=== PATIENT | male | born 1950 | race Caucasian/White ===

== ENCOUNTER 2017-02-15 10:50 | Observation (INO) ==
[2017-02-15] MEDS ORDERED: diphenhydrAMINE CAP 25 MG CAPSULE PO ONE (10:54)
[2017-02-15] MEDS ORDERED: DIAZEPAM 5 MG TABLET PO ONE (10:54)
[2017-02-15] MEDS ORDERED: SODIUM CHLORIDE 0.45% 1,000 ML IV SCH (11:00)
[2017-02-15] MEDS ORDERED: MAGNESIUM SULF RIDER 2 GM in PREMIX 1 EACH IV PRN ×2 (12:04→12:05)
[2017-02-15] MEDS ORDERED: MAGNESIUM SULF RIDER 4 GM in PREMIX 1 EACH IV PRN (12:04)
[2017-02-15] MEDS ORDERED: POTASSIUM CHLORIDE RIDER 10 MEQ in PREMIX 1 EACH IV PRN (12:05)
[2017-02-15 12:07] LABS: Basophils % 0.3 % (0.0-0.8); Eosinophils # 0.1 10*3/uL (0.0-0.87); Eosinophils % 1.4 % (0.00-10.9); Hematocrit 41.5 VOL% (42.0-52.0); Immature Granulocytes % 0.3 %; Immature Granulocytes Absolute 0.01 #; Lymphocytes # 1.4 10*3/uL (1.4-4.0); Lymphocytes % 38.1 % (21.2-54.2); Mean Corpuscular HGB Conc 33.7 GM/DL (32-36); Mean Corpuscular Hemoglobin 32 PG (27-34); Mean Corpuscular Volume 95.2 FL (87-102); Mean Platelet Volume 9.7 FL (9.6-12.0); Monocytes # 0.4 10*3/uL (0.11-0.8); Monocytes % 10.5 % (1.7-12.7); Neutrophils # 1.8 10*3/uL (1.4-7.4); Neutrophils % 49.4 % (38.7-73.9); Platelet Count 208 T/CUMM (130-400); Red Blood Count 4.36 MC/CUMM (3.8-5.5); Red Cell Distribution Width 13.2 % (9.3-17.3); White Blood Count 3.7 T/CUMM (4-12)
[2017-02-15] MEDS ORDERED: HEPARIN/NACL 0.9% 2 UNITS/ML 1,000 ML IV ONE (12:19)
[2017-02-15] MEDS ORDERED: LIDOCAINE 1% 20 ML VIAL ONE (12:19)
[2017-02-15 12:33] LABS: Calcium 8.9 MG/DL (8.5-10.1); Osmolality,Calculated 284.8 MOS/KG (273-304)
[2017-02-15] MEDS ORDERED: HYDROmorphone 2 MG/1 ML VIAL ONE (12:53)
[2017-02-15] MEDS ORDERED: MIDAZOLAM 2 MG/2 ML VIAL ONE (12:53)
[2017-02-15] MEDS ORDERED: ASPIRIN 325 MG TABLET ONE (13:07)
--- NOTE | 2017-02-15 14:19 | Cardiac Catheterization ---
Date of Procedure:: 02/15/17 Procedure: CLINICAL SUMMARY: PROCEDURES PERFORMED: 1. Right femoral percutaneous arteriotomy 2. Left heart catheterization. 3. Resting hemodynamics. 4. Left ventriculography. 5. Coronary arteriography. 6. Selective left internal mammary bypass graft angiography. 6. Right femoral arteriogram. 7. Angio-Seal closure of the right femoral artery. DESCRIPTION OF PROCEDURE: After obtaining informed consent, the patient was brought to the cardiac catheterization lab where the right groin was prepped and draped in the usual sterile manner. Using IV sedation, local anesthesia, and Modified Seldinger technique, a needle was placed in the right femoral artery and a sheath was positioned without difficulty. A left coronary catheter was advanced over a guidewire under fluoroscopic control to the ascending aorta where angiograms of the left coronary artery were undertaken in multiple views. After adequate angiograms, this catheter was withdrawn and a right coronary catheter was advanced over a guidewire under fluoroscopic control to the ascending aorta with angiograms of the RCA were undertaken in numerous projections. We ultimately used this catheter to perform angiogram of the left internal mammary coronary artery bypass graft as well. After adequate angiograms, this catheter was removed and a pigtail ventriculographic catheter was advanced over a guidewire under fluoroscopic control to the aortic valve and left ventricular pressures were measured. After adequate pressures were measured, this catheter was used to perform left ventriculography in the CRISTINA projection. This catheter was then withdrawn under hemodynamic monitoring and removed from the patient. A right femoral arteriogram was performed showing adequate sheath placement for closure device deployment. The sheath was then removed and an Angio-Seal device was used to obtain hemostasis. The patient was transferred back to the room having suffered no immediate complications. HEMODYNAMICS: See the accompanying data sheet. CORONARY ARTERIOGRAPHY: LEFT MAIN: The left main coronary artery is a small diffusely diseased vessel which bifurcates into the left anterior descending and left circumflex coronary arteries. I don't see any focal obstructive disease in the left main coronary artery. LEFT CIRCUMFLEX: The left circumflex coronary artery is a relatively small diffusely diseased vascular system. It gives off a moderate-sized first obtuse marginal branch and a moderate-sized bifurcating second obtuse marginal branch and a moderate-sized posterolateral branch. There is some diffuse moderate disease throughout the left circumflex coronary artery system. There is a old vein graft touches down on the first and second obtuse marginal branches. The jump section of this graft appears to be patent but the graft is known to be occluded at its origin from the aorta. The inferior branch of the second obtuse marginal is a relatively small severely diseased vessel with sequential 99% stenoses and faint distal filling. It does not appear to be a good candidate for revascularization and does not appear to have changed significantly since the previous cardiac catheterization. LEFT ANTERIOR DESCENDING: The left anterior descending artery is moderate size vessel which gives off a moderate-sized first diagonal branch. The LAD is occluded in its midsegment. The first diagonal branch has diffuse moderate disease throughout its course. The distal left anterior descending coronary artery is seen filling via patent left internal mammary arterial graft. RIGHT CORONARY ARTERY: The right coronary artery is a large-caliber vessel which gives off a posterior descending artery and a posterolateral system. There are stents throughout the proximal to mid right coronary artery which are widely patent. There is a chronic total occlusion of the posterior descending artery which is not changed since the previous catheterization. I don't see any focal high-grade disease that appears to be a good interventional target in this vessel. LEFT INTERNAL MAMMARY TO LEFT ANTERIOR DESCENDING: This is a large caliber bypass graft which is widely patent throughout its course. There is moderate diffuse coronary artery disease in the left anterior descending coronary artery distal to the touchdown of the graft. LEFT VENTRICULOGRAPHY: Left ventricular ejection fraction appears to be 40-45% with hypokinesis in the mid anterolateral and infero-apical wall. PERIPHERAL ARTERIOGRAPHY: Right femoral arteriogram shows a normal right iliofemoral artery with adequate sheath placement for closure device deployment. IMPRESSIONS: 1. Severe diffuse [place] three-vessel coronary artery disease as described above. There has has not been any significant change in the coronary anatomy since the previous catheterization. 2. Widely patent internal mammary arterial to left anterior descending coronary artery bypass graft. 3. Known occlusion of the saphenous vein graft to the obtuse marginal branches. 4. Mildly reduced left ventricular systolic function with wall motion abnormality as described above. 5. Normal right iliofemoral artery with successful and distal closure of this vessel. PLAN: The patient has severe diffuse multivessel coronary artery disease. I don 't see any good interventional options at this time. His case was discussed with Dr. Rocha today both preoperatively and postoperatively. For now we will continue aggressive medical management. Anesthesia: minimal conscious sedation Surgeon / Physician: Dexter Diez Estimated blood loss: minimal Condition: stable Disposition: floor - Medications / Follow-up
[2017-02-15] MEDS ORDERED: NITROGLYCERIN SL 0.4 MG TABLET SL PRN (14:41)
[2017-02-15] MEDS ORDERED: SODIUM CHLORIDE 0.9% 1,000 ML IV SCH (15:00)
--- NOTE | 2017-02-15 16:10 | Discharge Summary ---
Hospital Course - Hospital Course Hospital Course: DO NOT CLOSE THIS NOTE. THIS IS A ROUGH DRAFT! DISCHARGE MEDS AND EXAM MUST BE COMPLETED! TOP AND SEAT COVER FITTER: DR. BANDA Patient was directly admitted from cardiovascular [place] [facility] by Dr. Banda for complaints of chest pain concerning for angina. He underwent elective cardiac catheterization performed by Dr. Dexter Diez February 15, 2017 with the following impression noted: IMPRESSIONS: 1. Severe diffuse [place] three-vessel coronary artery disease as described above. There has has not been any significant change in the coronary anatomy since the previous catheterization. 2. Widely patent internal mammary arterial to left anterior descending coronary artery bypass graft. 3. Known occlusion of the saphenous vein graft to the obtuse marginal branches. 4. Mildly reduced left ventricular systolic function with wall motion abnormality as described above. 5. Normal right iliofemoral artery with successful and distal closure of this vessel. PLAN: The patient has severe diffuse multivessel coronary artery disease. I don 't see any good interventional options at this time. His case was discussed with Dr. Banda today both preoperatively and postoperatively. For now we will continue aggressive medical management. He tolerated the procedure well without complication and was returned to our telemetry unit in stable condition. Overnight, his labs were stable. During the hospital stay his Coreg was increased from 3.125 mg orally twice daily to 6.25 mg orally twice daily. Patient has been ambulating without difficulty. He is anxious for release home. Having felt him at maximal medical therapy, patient is being discharged home in stable condition. He is being given a 1-2 week follow-up with Dr. Banda. At that visit the following labs will be obtained, BMP, magnesium, CBC. Discharge medications include the following: Aspirin 81 mg orally daily Atorvastatin 80 mg orally each evening Carvedilol 6.25 mg orally twice daily Plavix 75 mg orally daily Lasix 40 mg orally daily Isosorbide mononitrate 30 mg orally daily Nifedipine XL 90 mg orally each evening Nitroglycerin sublingual as needed Pantoprazole 40 mg orally daily Ranexa 1000 mg orally twice daily Sertraline 100 mg orally daily Trazodone 150 mg orally each evening Amaryl 2 mg orally twice daily - Time spent with patient Time with patient DS: Greater than 30 minutes Diagnosis - Discharge Diagnosis (1) Chest pain Status: Chronic (2) Status post coronary artery bypass grafting Status: Chronic (3) Cerebrovascular accident (stroke) Status: Chronic (4) Dyslipidemia Status: Chronic (5) Hypertension Status: Chronic Specialty Discharge - Follow Up or Referrals Follow up with: Katy Banda DO [Physician] - (1-2 WEEKS. BMP, Mg, CBC) Discharge Plan - Discharge Data Disposition: Disch To Home/Self Care Condition at Discharge: Stable Discharge Diet: heart healthy Activity: other (Post cath expectations) Hygiene: no restrictions Weight Bearing at Discharge: other (Post cath expectations) Driving: other (Post cath expectations) Contact your physician if you experience:: fever over 101, Difficulty voiding, Redness or swelling, Nausea/Vomiting, Shortness of breath, Bleeding, pain uncontrolled by pain medications - Discharge Medications No Action Furosemide Tab [Lasix Tab] 40 mg PO DAILY Sertraline [Zoloft] 100 mg PO DAILY Aspirin EC Tab 81 mg PO DAILY Atorvastatin Calcium [Lipitor] 80 mg PO DAILY NIFEdipine [Nifedipine ER] 90 mg PO BEDTIME Ranolazine [Ranexa] 1,000 mg PO BID Carvedilol [Coreg] 3.125 mg PO BID traZODone [Desyrel] 150 mg PO BEDTIME Glimepiride [Glimepiride] 2 mg PO BID Clopidogrel [Plavix] 75 mg PO DAILY Pantoprazole Tab [Protonix Tab] 40 mg PO DAILY Nitroglycerin [Nitroglycerin SL Tab] 0.4 mg SL DIRECTED PRN MDD 3 tabs PRN Reason: Chest Pain - Follow Up or Referral - Forms/Instructions Exam - Constitutional Vitals: Period Temp Pulse Resp BP Sys/Gracia Pulse Ox Last 24 Hr 97.6 F-98.1 F 70-81 18-18 134-156/65-84 96-97 Exam: General: [Appears well with no apparent distress.] [Pleasant and cooperative. ] [Appears comfortable.] HEENT: [PERRL, normocephalic, atraumatic. Mucous membranes moist. No jaundice noted. Conjunctiva moist and clear, sclerae anicteric] Neck: No JVD/HJR, no thyromegaly or lymphadenopathy noted. No carotid bruit appreciated Cardiac: [Regular rate and rhythm.] [No murmur rub or gallop.] Lungs: [Clear to auscultation without accessory muscle use to assist the respiratory pattern.] Not requiring oxygen Abdomen: Soft, bowel sounds normoactive. Nontender and nondistended. No abdominal bruit or thrill noted. No masses noted. Musculoskeletal: No fluid collection. Decreased range of motion is noted. Extremities: Right groin soft, free of hematoma or bruit. No clubbing, cyanosis noted. [ No edema noted.] Upper extremity pulses 2+. Lower extremity pulses 2+. Capillary refill less than 3 seconds. Skin: No unusual lesions or rashes. No skin breakdown appreciated. Neuro: Awake, alert and oriented 3. Moves all extremities well without hemiparesis or paralysis. No essential tremor is appreciated. Discharge Results Procedures and tests throughout hospitalization: Pending Orders 02/15/17 12:26 CL heart Routine 02/15/17 15:56 XR chest 1V portable Routine 02/16/17 04:00 BMP w/ Mg [Basic Metabolic Panel w/Mg] IN AM Basic Metabolic Panel IN AM Comp Blood Count Auto Diff IN AM Magnesium IN AM Labs on day of discharge: Labs from last 24 hours 02/15/17 02/15/17 12:02 12:02 WBC 3.7 L RBC 4.36 Hgb 14.0 Hct 41.5 L MCV 95.2 MCH 32 MCHC 33.7 RDW 13.2 Plt Count 208 MPV 9.7 Neut % (Auto) 49.4 Lymph % (Auto) 38.1 Teller % (Auto) 10.5 Eos % (Auto) 1.4 Baso % (Auto) 0.3 Neut # (Auto) 1.8 Lymph # (Auto) 1.4 Teller # (Auto) 0.4 Eos # (Auto) 0.1 Baso # (Auto) 0.0 Immature Gran % 0.3 Nucleated RBC % 0.0 Immature Gran # 0.01 Nucleated RBCs # 0.00 Sodium 144 Potassium 4.0 Chloride 105 Carbon Dioxide 31 Anion Gap 12.0 BUN 11 Creatinine 1.10 GFR Calculation 77 BUN/Creatinine Ratio 10.00 Glucose 91 Calculated Osmolality 284.8 Calcium 8.9 - Imaging and Cardiology Cardiology Procedure: report reviewed by me Procedure: Chest x-ray: report reviewed by me DS: Provider Date of admission: 02/15/17 11:41 Primary care physician: . No PCP Attending physician on admission: Katy Banda DO Consults: 02/15/17 12:49 Consult to Pharmacy [CONS] Routine Reason for Pharmacy Consult: Adjust Meds Renal Funct Discharging clinician: Otilia Pandey MAINTENANCE INSPECTOR
--- NOTE | 2017-02-15 16:37 | XRay Report ---
XR chest 1V portable Indication: Postop heart catheter. Chest one view: Comparison 07/21/2016. Lung volumes remain low with continued atelectasis. However, increased interstitial markings noted throughout, likely mild edema. No focal infiltrate. Heart size remains normal with stable median sternotomy wires. Impression: Continued pulmonary hypoinflation. Evidence of mild fluid overload with increased prominence of the interstitium of both lungs. PROCEDURE INTERPRETED AT [facility] DEPARTMENT OF RADIOLOGY Final Report Signed by: Sukumar Posey M.D.
[2017-02-15] MEDS: CARVEDILOL 6.25 MG TABLET PO SCH (20:29)
[2017-02-15] MEDS: RANOLAZINE 500 MG TABLET PO SCH (20:29)
[2017-02-15] MEDS: GLIMEPIRIDE 2 MG TABLET PO SCH (20:30)
[2017-02-15] MEDS ORDERED: CARVEDILOL 3.125 MG TABLET PO SCH (21:00)
[2017-02-16 02:47] LABS: Basophils % 0.2 % (0.0-0.8); Eosinophils # 0.1 10*3/uL (0.0-0.87); Eosinophils % 2.1 % (0.00-10.9); Hematocrit 40.5 VOL% (42.0-52.0); Hemoglobin 13.2 GM/DL (14.0-18.0); Lymphocytes # 1.9 10*3/uL (1.4-4.0); Lymphocytes % 40.3 % (21.2-54.2); Mean Corpuscular HGB Conc 32.6 GM/DL (32-36); Mean Corpuscular Hemoglobin 31 PG (27-34); Mean Corpuscular Volume 96.4 FL (87-102); Mean Platelet Volume 9.8 FL (9.6-12.0); Monocytes # 0.5 10*3/uL (0.11-0.8); Monocytes % 10.9 % (1.7-12.7); Neutrophils # 2.2 10*3/uL (1.4-7.4); Neutrophils % 46.5 % (38.7-73.9); Platelet Count 188 T/CUMM (130-400); Red Cell Distribution Width 13.2 % (9.3-17.3); White Blood Count 4.7 T/CUMM (4-12)
[2017-02-16 03:13] LABS: Calcium 8.1 MG/DL (8.5-10.1); Magnesium 1.9 MG/DL (1.8-2.4); Osmolality,Calculated 284.7 MOS/KG (273-304); Potassium 3.5 MMOL/L (3.5-5.1)
[2017-02-16 08:47] VITALS: BP 120/72
[2017-02-16] MEDS ORDERED: PANTOPRAZOLE 40 MG TABLET PO SCH (09:00)
[2017-02-16] MEDS ORDERED: ATORVASTATIN 80 MG TABLET PO SCH (09:00)
[2017-02-16] MEDS ORDERED: SERTRALINE 100 MG TABLET PO SCH (09:00)
[2017-02-16] MEDS ORDERED: ISOSORBIDE MONONITRATE 30 MG TABLET PO SCH (09:00)
[2017-02-16] MEDS ORDERED: FUROSEMIDE 40 MG TABLET PO SCH (09:00)
[2017-02-16] MEDS ORDERED: ASPIRIN EC 81 MG TABLET PO SCH (09:00)
[2017-02-16] MEDS ORDERED: CLOPIDOGREL 75 MG TABLET PO SCH (09:00)
--- NOTE | 2017-02-16 09:49 | Discharge Summary ---
<Nelia Tse - Last Filed: 02/16/17 09:47> Hospital Course - Hospital Course Hospital Course: TREE EXPERT: DR. BANDA Patient was directly admitted from cardiovascular [place] [facility] by Dr. Banda for complaints of chest pain concerning for angina. He underwent elective cardiac catheterization performed by Dr. Dexter Diez February 15, 2017 with the following impression noted: IMPRESSIONS: 1. Severe diffuse [place] three-vessel coronary artery disease. There has has not been any significant change in the coronary anatomy since the previous catheterization. 2. Widely patent internal mammary arterial to left anterior descending coronary artery bypass graft. 3. Known occlusion of the saphenous vein graft to the obtuse marginal branches. 4. Mildly reduced left ventricular systolic function with wall motion abnormality, 40-45%. 5. Normal right iliofemoral artery with successful and distal closure of this vessel. PLAN: The patient has severe diffuse multivessel coronary artery disease. I don 't see any good interventional options at this time. His case was discussed with Dr. Banda today both preoperatively and postoperatively. For now we will continue aggressive medical management. He tolerated the procedure well without complication and was returned to our telemetry unit in stable condition. Overnight, his labs were stable. Right groin is soft without bleeding, hematoma and bruit. Distal pulses 2+. During the hospital stay his Coreg was increased from 3.125 mg orally twice daily to 6.25 mg orally twice daily. Patient has been ambulating without difficulty. Right groin remained stable post ambulation. He is anxious for release home. Having felt him at maximal medical therapy, patient is being discharged home in stable condition. He is being given a 1-2 week follow-up with Dr. Banda. At that visit the following labs will be obtained, BMP, magnesium, CBC. Discharge medications include the following: Aspirin 81 mg orally daily Atorvastatin 80 mg orally each evening Carvedilol 6.25 mg orally twice daily Plavix 75 mg orally daily Lasix 40 mg orally daily Potassium 10 mEq daily Isosorbide mononitrate 30 mg orally daily Nifedipine XL 90 mg orally each evening Nitroglycerin sublingual as needed Pantoprazole 40 mg orally daily Ranexa 1000 mg orally twice daily Sertraline 100 mg orally daily Trazodone 150 mg orally each evening Amaryl 2 mg orally twice daily Diagnosis - Discharge Diagnosis (1) Chest pain Status: Resolved (2) Cerebrovascular accident (stroke) Status: Chronic (3) Dyslipidemia Status: Chronic (4) Hypertension Status: Chronic (5) Status post coronary artery bypass grafting Status: Chronic Specialty Discharge - Follow Up or Referrals Follow up with: Katy Banda DO [Physician] - 03/03/17 9:30 am (1-2 WEEKS. SHINE Mg, CBC) Discharge Plan - Discharge Data Disposition: Disch To Home/Self Care Condition at Discharge: Stable Discharge Diet: heart healthy Activity: no lifting (No heavy lifting or squatting 1 week.), other (Post cath expectations) Hygiene: may shower, other (Post cath expectations) Weight Bearing at Discharge: other (Post cath expectations) Driving: other (Post cath expectations) Contact your physician if you experience:: fever over 101, Difficulty voiding, Redness or swelling, Nausea/Vomiting, Shortness of breath, Bleeding, pain uncontrolled by pain medications - Discharge Medications New Carvedilol [Coreg] 6.25 mg PO BID #60 tablet Potassium Chloride Cap/Tab [K Dur] 10 meq PO DAILY #30 tablet Isosorbide Mononitrate [Imdur] 30 mg PO DAILY #30 tablet Continue Furosemide Tab [Lasix Tab] 40 mg PO DAILY Sertraline [Zoloft] 100 mg PO DAILY Aspirin EC Tab 81 mg PO DAILY Atorvastatin Calcium [Lipitor] 80 mg PO DAILY NIFEdipine [Nifedipine ER] 90 mg PO BEDTIME Ranolazine [Ranexa] 1,000 mg PO BID traZODone [Desyrel] 150 mg PO BEDTIME Glimepiride 2 mg PO BID Clopidogrel [Plavix] 75 mg PO DAILY Pantoprazole Tab [Protonix Tab] 40 mg PO DAILY Nitroglycerin [Nitroglycerin SL Tab] 0.4 mg SL DIRECTED PRN MDD 3 tabs PRN Reason: Chest Pain Discontinued Carvedilol [Coreg] 3.125 mg PO BID - Follow Up or Referral Follow Up: Katy Banda DO [Physician] - 03/03/17 9:30 am (1-2 WEEKS. Mg SHINE, CBC) - Forms/Instructions Instructions: Angina (DC), Right Heart Catheterization (DC) Exam - Constitutional Vitals: Period Temp Pulse Resp BP Sys/Gracia Pulse Ox Last 24 Hr 96.7 F-98.2 F 56-81 14-20 112-156/65-84 96-100 General appearance: normal weight, no acute distress - Head Head exam: Present: normal inspection, normocephalic, atraumatic - Respiratory Respiratory exam: Present: clear to auscultation bilaterally. Absent: accessory muscle use, chest wall tenderness, rales, rhonchi, stridor, wheezes - Cardiovascular Cardiovascular exam: Present: regular rate and rhythm. Absent: gallop, rubs - GI/Abdominal GI/Abdominal exam: Present: normal bowel sounds, soft. Absent: distended, firm , tenderness - Extremities Exam Extremities exam: Present: normal inspection, normal capillary refill, other ( Right groin soft without bleeding, hematoma and bruit. Bilateral lower extremity pulses 2+.). Absent: calf tenderness, edema - Neurological Exam Neurological exam: Present: alert, oriented X3, normal gait - Psychiatric Psychiatric exam: Present: normal affect, normal mood. Absent: agitated, anxious, depressed - Skin Skin exam: Present: normal color, warm, dry. Absent: cyanosis, erythema Discharge Results Labs on day of discharge: Labs from last 24 hours 02/16/17 02/16/17 02/16/17 10:00 01:51 01:51 WBC 4.7 RBC 4.20 Hgb 13.2 L Hct 40.5 L MCV 96.4 MCH 31 MCHC 32.6 RDW 13.2 Plt Count 188 MPV 9.8 Neut % (Auto) 46.5 Lymph % (Auto) 40.3 Snyder % (Auto) 10.9 Eos % (Auto) 2.1 Baso % (Auto) 0.2 Neut # (Auto) 2.2 Lymph # (Auto) 1.9 Snyder # (Auto) 0.5 Eos # (Auto) 0.1 Baso # (Auto) 0.0 Immature Gran % 0.0 Nucleated RBC % 0.0 Immature Gran # 0.00 Nucleated RBCs # 0.00 Sodium 145 Potassium 3.5 Chloride 106 Carbon Dioxide 32 Anion Gap 10.5 BUN 9 Creatinine 0.80 GFR Calculation 103 BUN/Creatinine Ratio 11.00 Glucose 67 L POC Glucose 144 H Calculated Osmolality 284.7 Calcium 8.1 L Magnesium 1.9 02/15/17 02/15/17 12:02 12:02 WBC 3.7 L RBC 4.36 Hgb 14.0 Hct 41.5 L MCV 95.2 MCH 32 MCHC 33.7 RDW 13.2 Plt Count 208 MPV 9.7 Neut % (Auto) 49.4 Lymph % (Auto) 38.1 Snyder % (Auto) 10.5 Eos % (Auto) 1.4 Baso % (Auto) 0.3 Neut # (Auto) 1.8 Lymph # (Auto) 1.4 Snyder # (Auto) 0.4 Eos # (Auto) 0.1 Baso # (Auto) 0.0 Immature Gran % 0.3 Nucleated RBC % 0.0 Immature Gran # 0.01 Nucleated RBCs # 0.00 Sodium 144 Potassium 4.0 Chloride 105 Carbon Dioxide 31 Anion Gap 12.0 BUN 11 Creatinine 1.10 GFR Calculation 77 BUN/Creatinine Ratio 10.00 Glucose 91 POC Glucose Calculated Osmolality 284.8 Calcium 8.9 Magnesium - Imaging and Cardiology Cardiology Procedure: report reviewed by me Procedure: Chest x-ray: report reviewed by me DS: Provider Date of admission: 02/15/17 11:41 Primary care physician: . No PCP Attending physician on admission: Katy Banda DO Consults: 02/15/17 12:49 Consult to Pharmacy [CONS] Routine Reason for Pharmacy Consult: Adjust Meds Renal Funct Discharging clinician: Nelia Tse NP Expected date of discharge: 02/16/17 <Mauricio Calderon - Last Filed: 02/16/17 10:50> Hospital Course - Hospital Course Hospital Course: Cardiology addendum Patient examined and chart reviewed. Right groin soft and dry. Small ecchymotic bruise but no bruit or hematoma. Distal pulses 2+. Routine groin precautions were discussed with the patient and his . Home today. Office visit with Dr. Cooley in 2 weeks scheduled medications as outlined above.
[2017-02-16] MEDS: CARVEDILOL 6.25 MG TABLET PO SCH (10:01)
[2017-02-16] MEDS: GLIMEPIRIDE 2 MG TABLET PO SCH (10:01)
[2017-02-16] MEDS: RANOLAZINE 500 MG TABLET PO SCH (10:01)
[2017-02-16] MEDS ORDERED: POTASSIUM CHLORIDE 20 MEQ TABLET PO ONE (10:11)
[2017-02-17] MEDS ORDERED: POTASSIUM CHLORIDE 10 MEQ TABLET PO SCH (09:00)
== END 2017-02-16 11:37 | disposition home or self-care (01) ==
LOC: N.TELES
PROVIDERS: ADMIT Internal Medicine Cardiovascular Disease; ATTEND Internal Medicine Cardiovascular Disease

== ENCOUNTER 2017-08-17 11:58 | Inpatient (IN) ==
[2017-08-17] MEDS ORDERED: SODIUM CHLORIDE 0.9% 500 ML IV STA (12:18)
[2017-08-17 12:30] LABS: Basophils % 0.2 % (0.0-0.8); Eosinophils # 0.1 10*3/uL (0.0-0.87); Eosinophils % 1.2 % (0.00-10.9); Hematocrit 36.3 VOL% (42.0-52.0); Hemoglobin 12.6 GM/DL (14.0-18.0); Immature Granulocytes % 0.2 %; Immature Granulocytes Absolute 0.01 #; Lymphocytes # 1.2 10*3/uL (1.4-4.0); Lymphocytes % 23.4 % (21.2-54.2); Mean Corpuscular HGB Conc 34.7 GM/DL (32-36); Mean Corpuscular Hemoglobin 34 PG (27-34); Mean Corpuscular Volume 96.5 FL (87-102); Mean Platelet Volume 10.4 FL (9.6-12.0); Monocytes # 0.5 10*3/uL (0.11-0.8); Monocytes % 10.6 % (1.7-12.7); Neutrophils # 3.2 10*3/uL (1.4-7.4); Neutrophils % 64.4 % (38.7-73.9); Platelet Count 128 T/CUMM (130-400); Red Blood Count 3.76 MC/CUMM (3.8-5.5); Red Cell Distribution Width 12.6 % (9.3-17.3)
[2017-08-17 12:38] LABS: INR 1.1; PT Patient Result 11.5 SECS
--- NOTE | 2017-08-17 12:39 | Emergency Department Note ---
Kevin Childs Brittany, am scribing for, and in the presence of, Jose Nolasco MD 12:28. Gaurav Childs Charles R, MD, personally performed the services described in this documentation, ascribed by Sara Brown in my presence, and it is both accurate and complete . Arrival - Arrival Chief Complaint: Altered Mental Status Stated Complaint: altered loc ED Nursing Triage Note: Brought in by EMS c/o altered LOC, states that they were at a , patient grabbed her hand and stated "something isn't right". Diaphoretic. Accucheck 126mg/dl per EMS. Mode of Arrival: Stretcher Limitations: Altered Mental Status Source: Significant other, RN Notes Reviewed Time Seen by Provider: 08/17/17 12:08 - History of Present Illness HPI Narrative: Patient is a 66 y/o white male presenting to the ED via EMS for further evaluation of AMS. at the bedside reports that she and patient were attending a family member's when he gripped her hand tight and told her he wasn't feeling well. Patient then collapsed onto the ground. She states that patient had become diaphoretic by that time. Patient was noted to have had a weak pulse and was not breathing for a brief period of time. Patient did open his eyes, but was looking off into space, not making eye contact with his . She is unsure of whether there may have been some type of seizure activity. She notes that he was complaining of chest pain last night that was relieved with a NTG. He had not complained of chest pain this morning. He is a patient of Dr. Rocha of Cardiology. Patient currently is on Plavix. Patient has a history of CAD, Multiple CVA, Quadruple Bypass, Cardiac Catheterization requiring x5 stents. notes that patient has a history of Basilar Stent placement at [facility] and reports that about 7-8 months ago patient described having symptoms similar to those experienced prior to having this shunt placed. She states that upon seeking medical attention for this patient was told that he has another blockage, but at that time nothing could be done about it. Patient is noted to have a GCS of 5 at this time. No further complaints. Allergies/Adverse Reactions: Allergies Allergy/AdvReac Type Severity Reaction Status Date / Time metoprolol [From Lopressor] Allergy Intermediate RASH Verified 04/14/15 06:38 Home Medications: Home Medications Medication Instructions Recorded Confirmed Type Aspirin EC Tab 81 mg PO DAILY 04/14/15 08/17/17 History Atorvastatin Calcium [Lipitor] 80 mg PO DAILY 04/14/15 08/17/17 History Ranolazine [Ranexa] 1,000 mg PO BID 04/14/15 08/17/17 History Clopidogrel [Plavix] 75 mg PO DAILY 02/15/17 08/17/17 History Nitroglycerin [Nitroglycerin SL 0.4 mg SL DIRECTED PRN MDD 3 02/15/17 History Tab] tabs Carvedilol [Coreg] 6.25 mg PO BID #60 tablet 02/16/17 08/17/17 Rx Gabapentin [Gabapentin] 100 mg PO QID 08/17/17 08/17/17 History Isosorbide Mononitrate [Isosorbide 60 mg PO DAILY 08/17/17 08/17/17 History Mononitrate ER] Losartan Potassium [Losartan 25 mg PO DAILY 08/17/17 08/17/17 History Potassium] Zolpidem Tartrate [Zolpidem 10 mg PO BEDTIME 08/17/17 08/17/17 History Tartrate] Review of System - Review of System ROS unobtainable: due to mental status - Review of System Cardiovascular: Present: syncope Medical,Surgical,& Family Hx - Medical History Cardio: History of: CAD, Hypertension, [place] Neurology: History of: Cerebrovascular Accident (left side def) No history of: Seizures Endocrine: History of: Diabetes Mellitus (NIDDM), Dyslipidemia Hematology: No history of: Blood Transfusion Reaction Other: History of: Anesthesia Reactions - Surgical History Cardiac Surgeries: Sugical HX of: Cardiac Catheterization (STENT), Cardiac Surgery (cabg) Neurologic Surgeries: Surgical HX of: Neurologic Surgery (basilar shunt) Abdominal Surgeries: Surgical HX of: Abdominal Surgery (knot removed from left abdomen at [place]), Colonoscopy, EGD (dilatation of strictures), Hernia Repair Orthopedic Surgeries: Surgical HX of;: Orthopedic Surgery (bilateral feet and elbow) - Family History Family History: Reports;: Family Cancer (sister throat cancer), Family Heart Disease (father), Family Hypertension (mother) - Social History Smoking Status: Never smoker Frequency of Alcohol Use: None Type of Drug Use: None Exam Vital Signs: Vital Signs Temperature 97.0 F L 08/17/17 11:59 Pulse Rate 51 L 08/17/17 11:59 Respiratory Rate 18 08/17/17 12:10 Blood Pressure 145/79 08/17/17 11:59 O2 Sat by Pulse Oximetry 98 08/17/17 11:59 - General General appearance: obtunded (Pt is totally unresponsive, does not respond to verbal/painful stimuli; GCS of 5) - Head Head exam: Present: atraumatic, normocephalic - Eye Eye exam: Absent: normal appearance (deviated gaze to the left; occasionally opens his eyes does not make eye contact, stres off into space -per ER physician ) - Neck Neck exam: Present: trachea midline - Chest Chest inspection: Present: symmetric chest wall rise - Respiratory Respiratory exam: Present: normal lung sounds bilaterally - Cardiovascular Cardiovascular exam: Present: normal rhythm, bradycardia, normal heart sounds. Absent: regular rate - Abdominal Exam Abdominal exam: Present: soft, normal bowel sounds - Neurological Exam Neurological exam: Present: other (GCS of 5). Absent: alert - Skin Skin exam: Present: warm, dry Course - Reevaluation(s) Reevaluation #1: Patient reexamined his GCS went from 5-14. Patient is not a candidate for TPA because he has improving symptoms and he had initial NIH score of 33. Patient has weakness on his left side with some left facial droop some difficulty swallowing left-sided weakness but no true paralysis. Time: 13:08 Results - Labs CBC & BMP: 08/17/17 12:12 08/17/17 12:12 Lab Results: I have reviewed the patients labs Labs: Laboratory Tests 08/17/17 08/17/17 12:07 12:12 WBC 5.0 RBC 3.76 L Hgb 12.6 L Hct 36.3 L Plt Count 128 L Lymph # (Auto) 1.2 L POC Glucose 121 H Laboratory Tests 08/17/17 12:12 INR 1.1 PT Patient/Control Mix 11.5 Laboratory Tests 08/17/17 08/17/17 12:12 12:12 Sodium 142 Potassium 4.1 Chloride 111 H Carbon Dioxide 26 BUN 17 Creatinine 1.00 Glucose 106 Calcium 7.9 L Alkaline Phosphatase 35 L Troponin I < 0.015 Prolactin 25.3 Laboratory Tests 08/17/17 12:56 Urine Color Yellow Urine Appearance Slightly hazy Urine pH 5.0 Ur Specific [place] 1.012 Urine Protein Negative Urine Glucose (UA) Negative Urine Ketones Negative Urine Blood Negative Urine Nitrate Negative Urine Bilirubin Negative Urine Urobilinogen < 2.0 H Urine Leukocytes Negative Urine RBC <1 Urine WBC 1 Ur Squamous Epith Cells Occasional Hyaline Casts 64 Urine Mucus Occasional - Diagnostic Findings Procedure: Chest x-ray: report reviewed by me (Cardiomegaly. Chronic lung changes. No acute abnormality.), CT: report reviewed by me (CT Head: No acute intracranial pathology seen.) Critical Care Time Critical Care Time: Yes Total Critical Care Time: 60 Disposition Clinical Impression: Altered mental status, CVA (cerebral vascular accident), Left-sided weakness Case discussed with: patient, patient's family Disposition: Still a Patient Condition: Guarded Time of Disposition: 13:44 NIH Stroke Score - Stroke Score Initial Assessment Level of Consciousness: Stuporous Level of Consciousness Questions: Both Incorrect Level of Consciousness Commands: Both Incorrect Best Gaze: Partial Gaze Palsy Visual Grady: No Visual Loss Facial Palsy: Normal Motor - Right Arm: No Movement Motor - Left Arm: No Movement Motor - Right Leg: No Movement Motor - Left Leg: No Movement Limb Ataxia: Absent Sensory ([place]): Severe Loss Best Language: Mute Dysarthria: Intubated/Physical Barrier Extinction / Inattention (Neglect): Complete Neglect NIH Stroke Score: 33
--- NOTE | 2017-08-17 12:40 | XRay Report ---
Single view the chest. Indication: Altered mental status. Comparison: February 15, 2017. The heart is enlarged. The lung volumes are small. Post median sternotomy. Normal pulmonary vasculature. No consolidation, pneumothorax, or pleural effusion. Mild scarring in the left lung base. Impression: Cardiomegaly. Chronic lung changes. No acute abnormality. PROCEDURE INTERPRETED AT [facility] DEPARTMENT OF RADIOLOGY Final Report Signed by: Dr. Nelia Dodge
--- NOTE | 2017-08-17 12:41 | CT Report ---
History is altered mental status, altered LOC Comparison 06/11/2014 the ventricles are normal in size No acute intracranial hemorrhage or mass effects seen Presumed stents in the basilar artery again seen No acute cortical stroke identified Impression: No acute intracranial pathology seen The CT exam was performed using one or more of the following dose reduction techniques: Automated exposure control, adjustment of the mA and/or kV according to patient size, or use of iterative reconstruction technique. PROCEDURE INTERPRETED AT [facility] DEPARTMENT OF RADIOLOGY Final Report Signed by: Dr. Steff Dodge
[2017-08-17 13:00] LABS: Ammonia 26 UMOL/L (11-32)
[2017-08-17 13:04] LABS: Alanine Aminotransferase 29 U/L (16-61); Albumin 3.4 G/DL (3.4-5.0); Alkaline Phosphatase 35 U/L (45-117); Aspartate Amino Transferase 19 U/L (0-37); Blood Urea Nitrogen 17 MG/DL (7-18); Calcium 7.9 MG/DL (8.5-10.1); Glucose 106 MG/DL (74-106); Magnesium 1.9 MG/DL (1.8-2.4); Osmolality,Calculated 284.1 MOS/KG (273-304); Potassium 4.1 MMOL/L (3.5-5.1); Sodium 142 MMOL/L (136-145); Total Protein 6.4 G/DL (6.4-8.3); Troponin I Only < 0.015 NG/ML (0.00-0.045)
[2017-08-17 13:24] LABS: Apearance,Urine Slightly Hazy (Clear); Bilirubin,Urine Negative (Negative); Blood, Urine Negative (Negative); Glucose,Urine (UA) Negative (Negative); Hyaline Casts,Urine 64 /LPF (0-3); Ketones,Urine Negative (Negative); Mucus,Urine Occasional /LPF (Occasional); Nitrite,Urine Negative (Negative); Protein,Urine Negative; RBC,Urine <1 /HPF (0-4); Squamous Epithelial Cell,Urine Occasional /HPF (0-10); Urine Color Yellow (Yellow); Urine Specific Gravity 1.012 (1.001-1.035); Urine Urobilinogen < 2.0 EU/DL (0.2-1.0); WBC,Urine 1 /HPF (0-6)
[2017-08-17] MEDS ORDERED: LABETALOL 20 MG/4 ML SYRINGE IV PRN (14:34)
[2017-08-17 14:36] LABS: Sedimentation Rate-Westergren 15 MM/HR (0-20)
--- NOTE | 2017-08-17 14:45 | Hospitalist History & Physical ---
Assessment and Plan (1) Acute CVA (cerebrovascular accident) Status: Acute Assessment and plan: MRI of brain, cta of head and neck, echo, asa suppository, spoke with Dr Bang , lipitor 80 mg po at bedtime Current Visit: Yes (2) CAD (coronary artery disease) Status: Acute Assessment and plan: s/p stents multiple, sees Dr. Rocha, serial troponins and ekgs, echo, Last cardiac cath that was on February 15, 2017. Severe diffuse three-vessel disease with no good stent options. He has a widely patent internal mammary artery to the left anterior descending artery graft. Nonocclusion of the saphenous graft to the obtuse marginal, ejection fraction is 40-45% with hypokinesis in the mid anterior lateral and inferior apical wall. No new stents were placed. Continue medical management with aspirin and Plavix. Current Visit: Yes (3) Hypertension Status: Chronic Assessment and plan: Hold meds due to acute stroke Current Visit: No Qualifiers: Hypertension type: essential hypertension Qualified Code(s): I10 - Essential (primary) hypertension (4) Depression Status: Chronic Assessment and plan: due to chronic medical problems, currently not on antidepressant Current Visit: No Qualifiers: Depression Type: major depressive disorder Major depression recurrence: recurrent Active/Remission status: currently active Major depression episode severity: severe Psychotic features: without psychotic features Qualified Code(s): F33.2 - Major depressive disorder, recurrent severe without psychotic features (5) Chest pain Status: Resolved Assessment and plan: patient unable to talk to me, serial troponins and ekg Current Visit: No (6) Altered mental status Status: Acute Assessment and plan: due to severe stroke, which is worsened with dehydration Current Visit: Yes (7) Dehydration Status: Acute Assessment and plan: ns at 125 ml/hr Current Visit: Yes (8) Hyperlipidemia Status: Acute Assessment and plan: feeding tube placement, cont lipitor 80 mg at bedtime. Current Visit: Yes History of Present Illness Chief complaint: unresponsive History of present illness: Mr. Gee is a 66 year old male presents to the ED via EMS for further evaluation of AMS. at the bedside reports that she and patient were attending a family member's when he gripped her hand tight and told her he wasn't feeling well. Patient then collapsed onto the ground. She states that patient had become diaphoretic by that time. Patient was noted to have had a weak pulse and was not breathing for a brief period of time. Patient did open his eyes, but was looking off into space, not making eye contact with his . She is unsure of whether there may have been some type of seizure activity. She notes that he was complaining of chest pain last night that was relieved with a NTG. He had not complained of chest pain this morning. He is a patient of Dr. Rocha of Cardiology and has had multiple cardiac stents. Patient currently is on Plavix and asa. Patient has a history of CAD, Multiple CVA usually always affecting the left side. reports having Basilar Stent placement at [facility] about 7-8 months. I have discussed case with Dr. Bang. Home Medications Medication Instructions Recorded Confirmed Type Aspirin EC Tab 81 mg PO DAILY 04/14/15 08/17/17 History Atorvastatin Calcium [Lipitor] 80 mg PO DAILY 04/14/15 08/17/17 History Ranolazine [Ranexa] 1,000 mg PO BID 04/14/15 08/17/17 History Clopidogrel [Plavix] 75 mg PO DAILY 02/15/17 08/17/17 History Nitroglycerin [Nitroglycerin SL 0.4 mg SL DIRECTED PRN MDD 3 02/15/17 History Tab] tabs Carvedilol [Coreg] 6.25 mg PO BID #60 tablet 02/16/17 08/17/17 Rx Gabapentin [Gabapentin] 100 mg PO QID 08/17/17 08/17/17 History Isosorbide Mononitrate [Isosorbide 60 mg PO DAILY 08/17/17 08/17/17 History Mononitrate ER] Losartan Potassium [Losartan 25 mg PO DAILY 08/17/17 08/17/17 History Potassium] Zolpidem Tartrate [Zolpidem 10 mg PO BEDTIME 08/17/17 08/17/17 History Tartrate] Allergies Allergy/AdvReac Type Severity Reaction Status Date / Time metoprolol [From Lopressor] Allergy Intermediate RASH Verified 04/14/15 06:38 Medical,Surgical,& Family Hx - Medical History Cardio: History of: CAD, Hypertension, [place] Neurology: History of: Cerebrovascular Accident (left side def) No history of: Seizures Endocrine: History of: Diabetes Mellitus (NIDDM), Dyslipidemia Hematology: No history of: Blood Transfusion Reaction Other: History of: Anesthesia Reactions - Surgical History Cardiac Surgeries: Sugical HX of: Cardiac Catheterization (STENT), Cardiac Surgery (cabg) Neurologic Surgeries: Surgical HX of: Neurologic Surgery (basilar shunt) Abdominal Surgeries: Surgical HX of: Abdominal Surgery (knot removed from left abdomen at [place]), Colonoscopy, EGD (dilatation of strictures), Hernia Repair Orthopedic Surgeries: Surgical HX of;: Orthopedic Surgery (bilateral feet and elbow) Additional Surgical History: basilar stent - Family History Family History: Reports;: Family Cancer (sister throat cancer), Family Heart Disease (father), Family Hypertension (mother) - Social History Smoking Status: Never smoker Frequency of Alcohol Use: None Type of Drug Use: None Marital Status: Lives With:: Spouse Functional capacity: independent ambulation ROS unobtainable: due to mental status, due to encephalopathy Exam - Constitutional Vitals: Period Temp Pulse Resp BP Sys/Gracia Pulse Ox Last 24 Hr 97.0 F-97.0 F 51-51 18-18 145-145/79-79 98-100 General appearance: no acute distress, over weight - Head Head exam: Present: normal inspection, normocephalic - Eye Eye exam: Present: EOMI. Absent: scleral icterus Pupils: Present: YUE - ENT ENT exam: Present: normal exam, normal external ear exam - Neck Neck exam: Absent: lymphadenopathy, thyromegaly - Respiratory Respiratory exam: Present: clear to auscultation bilaterally. Absent: rhonchi, wheezes - Cardiovascular Cardiovascular exam: Present: regular rate and rhythm. Absent: systolic murmur - GI/Abdominal GI/Abdominal exam: Present: normal bowel sounds, soft. Absent: tenderness - Extremities Exam Extremities exam: Present: normal inspection, normal capillary refill - Neurological Exam Neurological exam: Present: altered, motor sensory deficit (left side flaccid ) , reflexes normal, other (positive babinski on left ) - Psychiatric Psychiatric exam: Present: other (cannot assess due to lethargy ) - Skin Skin exam: Present: normal color, warm Results - Labs CBC & BMP: 08/17/17 12:12 08/17/17 12:12 Lab Results: I have reviewed the past 24 hour labs - EKG EKG shows: sinus rhythm (with qwaves in anteriorseptal leads ) - Diagnostic Findings Procedure: CT: report reviewed by me (head nothing acute)
--- NOTE | 2017-08-17 15:11 | Neurology Consult Note ---
History of Present Illness History of present illness: Mr. Gee is a 66 year old white gentleman presents to the ED via EMS for further evaluation of AMS. at the bedside reports that she and patient were attending a family member's when he gripped her hand tight and told her he wasn't feeling well. Patient then collapsed onto the ground. She states that patient had become diaphoretic by that time. Patient was noted to have had a weak pulse and was not breathing for a brief period of time. Patient did open his eyes, but was looking off into space, not making eye contact with his . He is a patient of Dr. Rocha of Cardiology and has had multiple cardiac stents. Patient currently is on Plavix and asa. Patient has a history of CAD, Multiple CVA usually always affecting the left side. reports having Basilar Stent placement at [facility] about 7-8 months. During the interview patient able to open his eyes and communicate with me. His speech is fluent. He was able to move left side as well. He was also able to get up and take a few steps with mod assist Home Medications Medication Instructions Recorded Confirmed Type Aspirin EC Tab 81 mg PO DAILY 04/14/15 08/17/17 History Atorvastatin Calcium [Lipitor] 80 mg PO DAILY 04/14/15 08/17/17 History Ranolazine [Ranexa] 1,000 mg PO BID 04/14/15 08/17/17 History Clopidogrel [Plavix] 75 mg PO DAILY 02/15/17 08/17/17 History Nitroglycerin [Nitroglycerin SL 0.4 mg SL DIRECTED PRN MDD 3 02/15/17 History Tab] tabs Carvedilol [Coreg] 6.25 mg PO BID #60 tablet 02/16/17 08/17/17 Rx Gabapentin [Gabapentin] 100 mg PO QID 08/17/17 08/17/17 History Isosorbide Mononitrate [Isosorbide 60 mg PO DAILY 08/17/17 08/17/17 History Mononitrate ER] Losartan Potassium [Losartan 25 mg PO DAILY 08/17/17 08/17/17 History Potassium] Zolpidem Tartrate [Zolpidem 10 mg PO BEDTIME 08/17/17 08/17/17 History Tartrate] Allergies Allergy/AdvReac Type Severity Reaction Status Date / Time metoprolol [From Lopressor] Allergy Intermediate RASH Verified 04/14/15 06:38 12 point system: reviewed and no additional remarkable complaints except as stated Medical,Surgical,& Family Hx - Medical History Cardio: History of: CAD, Hypertension, [place] Neurology: History of: Cerebrovascular Accident (left side def) No history of: Seizures Endocrine: History of: Diabetes Mellitus (NIDDM), Dyslipidemia Hematology: No history of: Blood Transfusion Reaction Other: History of: Anesthesia Reactions - Surgical History Cardiac Surgeries: Sugical HX of: Cardiac Catheterization (STENT), Cardiac Surgery (cabg) Neurologic Surgeries: Surgical HX of: Neurologic Surgery (basilar shunt) Abdominal Surgeries: Surgical HX of: Abdominal Surgery (knot removed from left abdomen at [place]), Colonoscopy, EGD (dilatation of strictures), Hernia Repair Orthopedic Surgeries: Surgical HX of;: Orthopedic Surgery (bilateral feet and elbow) - Family History Family History: Reports;: Family Cancer (sister throat cancer), Family Heart Disease (father), Family Hypertension (mother) - Social History Smoking Status: Never smoker Frequency of Alcohol Use: None Type of Drug Use: None Exam - Constitutional Vitals: Period Temp Pulse Resp BP Sys/Gracia Pulse Ox Last 24 Hr 97.0 F-97.0 F 51-51 18-18 145-145/79-79 98-100 Exam: GENERAL: Patient is in no acute distress. NECK: Neck is supple. There is no JVD. No carotid bruits present. No thyroid masses. CVS: First and second heart sounds are normal. There is no S3 present. Regular rate and rhythm. RESPIRATORY: Lungs are clear to auscultation without any rales or rhonchi. ABDOMEN: Soft and non-tender. Bowel sounds are present. There is no hepatosplenomegaly. EXT: There is no palpable edema. Peripheral pulses are present. Skin: No rashes Central Nervous system: General: Alert, awake and Oriented x 3 Speech: Fluent Comprehension: Intact and normal Facial expressions: Normal Cranial Nerves: CN1/Olfactory: Normal CN II/ Optic: Normal, Visual Grady unreliable CN III, and : YUE & EOMI CN V: Normal & intact CN VII: face is symmetric CNVIII: Normal CN XI/X/XI/XII: Intact and Normal Motor: Bulk and Tone is normal. Strength in the right 5/5 StrengthGrossly intact for all the modalities of PP, LT and temp sense in the left 3/5 with significant giveaway weak Sensory: Unreliable Reflexes: 1+ and symmetrical Cerebellar function: Not tested Toes: Equivocal Gait: Able to get up and take a few steps with mod assist Results - Labs CBC & BMP: 08/17/17 12:12 08/17/17 12:12 Assessment and Plan (1) Left-sided weakness Status: Acute Assessment and plan: Patient has significant giveaway weakness and able to perform function in the left side upon repetitive commands. There is some discrepancy in the history and exam. I certainly cannot exclude the possibility of functional/conversion element. Consult PT and OT Agree with MRI of the brain Hold off to CTA or any further investigation Thank you for the consult Current Visit: Yes
[2017-08-17] MEDS: ENOXAPARIN 40 MG/0.4 ML SYRINGE SUBCUT SCH (16:00)
[2017-08-17] MEDS: SODIUM CHLORIDE 0.9% 1,000 ML IV SCH (16:00)
[2017-08-17] MEDS: ASPIRIN 300 MG SUPP RECTAL SCH (16:16)
[2017-08-17 16:21] LABS: Barbiturates Screen,Urine Negative (Negative); Benzodiazepines Screen,Urine Negative (Negative); Cannabinoid Screen,Urine Negative (Negative); Opiate Screen,Urine Negative (Negative); Phencyclidine Screen,Urine Negative (Negative)
--- NOTE | 2017-08-17 16:25 | Ultrasound Report ---
Bilateral carotid Doppler. Grayscale, color-flow, and spectral analysis performed and interpreted. Indication: Left-sided weakness. There is mild atherosclerotic plaque present at each carotid bulb. The right internal carotid artery peak systolic velocity is 82 cm/s with an IC/CC ratio of 1.1. The left internal carotid artery peak systolic velocity is 83 cm/s, with an IC/CC ratio of 1.3. There is antegrade flow within each vertebral artery. Impression: Using NASCET criteria, findings consistent with less than 50% stenosis bilaterally. The Ultrasound images were captured and stored. PROCEDURE INTERPRETED AT [facility] DEPARTMENT OF RADIOLOGY Final Report Signed by: Dr. Nelia Dodge
[2017-08-17 17:25] LABS: INR 1.1; PT Patient Result 11.5 SECS
[2017-08-17] MEDS: ATORVASTATIN 80 MG TABLET PO SCH (21:18)
[2017-08-18] MEDS: SODIUM CHLORIDE 0.9% 1,000 ML IV SCH ×2 (00:40→08:25)
[2017-08-18] MEDS ORDERED: ACETAMINOPHEN 325 MG/10.15 ML UDCUP PO PRN (05:05)
--- NOTE | 2017-08-18 06:14 | Order Completion Report ---
See report scanned to EMR
[2017-08-18 06:26] LABS: Risk Ratio 3.18
[2017-08-18 06:35] LABS: Troponin I Only < 0.015 NG/ML (0.00-0.045)
[2017-08-18] MEDS: ASPIRIN 300 MG SUPP RECTAL SCH (08:26)
[2017-08-18 11:39] LABS: ABG Base Excess -0.4 MMOL/L (-2.5-2.5); ABG HCO3 24.8 MMOL/L (20-26); ABG Oxygen Saturation 97.6 % (95-100); ABG PH 7.379 (7.35-7.45); ABG PO2 108.9 MM HG (80-95); ABG TCO2 26.1 MMOL/L (23-27)
[2017-08-18] MEDS: ENOXAPARIN 40 MG/0.4 ML SYRINGE SUBCUT SCH (14:12)
--- NOTE | 2017-08-18 14:45 | Neurology Progress Note ---
Neurology - PN : Subjective Interval history: Patient seems to be doing about the same. He reported that he may be a little better. MRI is still pending. I was able to get him up and he took a few steps. He is still trying to sleep most of the time. Exam (Progress Note) - Constitutional Vitals: Period Temp Pulse Resp BP Sys/Gracia Pulse Ox Last 24 Hr 97.2 F-98.4 F 50-63 16-21 102-151/56-82 93-98 Exam: GENERAL: Patient is in no acute distress. NECK: Neck is supple. There is no JVD. No carotid bruits present. No thyroid masses. CVS: First and second heart sounds are normal. There is no S3 present. Regular rate and rhythm. RESPIRATORY: Lungs are clear to auscultation without any rales or rhonchi. ABDOMEN: Soft and non-tender. Bowel sounds are present. There is no hepatosplenomegaly. EXT: There is no palpable edema. Peripheral pulses are present. Skin: No rashes Central Nervous system: General: Alert, awake and Oriented x 3 Speech: Fluent Comprehension: Intact and normal Facial expressions: Normal Cranial Nerves: CN1/Olfactory: Normal CN II/ Optic: Normal, Visual Grady unreliable CN III, and : YUE & EOMI CN V: Normal & intact CN VII: face is symmetric CNVIII: Normal CN XI/X/XI/XII: Intact and Normal Motor: Bulk and Tone is normal. Strength in the right 5/5 StrengthGrossly intact for all the modalities of PP, LT and temp sense in the left 3/5 with significant giveaway weak Sensory: Unreliable Reflexes: 1+ and symmetrical Cerebellar function: Not tested Toes: Equivocal Gait: Able to get up and take a few steps with mod assist Results - Labs CBC & BMP: 08/17/17 12:12 08/17/17 12:12 Assessment and Plan (1) Left-sided weakness Status: Acute Assessment and plan: Patient has significant giveaway weakness and able to perform function in the left side upon repetitive commands. There is some discrepancy in the history and exam. I certainly cannot exclude the possibility of functional/conversion element however given high risk factors for stroke is is still in the differential diagnosis. MRI of the brain is pending. Add Prozac 20 mg p.o. daily Current Visit: Yes
--- NOTE | 2017-08-18 15:26 | Order Completion Report ---
See report scanned to EMR
[2017-08-18] MEDS ORDERED: NITROGLYCERIN SL 0.4 MG TABLET SL PRN (15:58)
[2017-08-18] MEDS ORDERED: LOSARTAN 25 MG TABLET PO SCH (16:00)
--- NOTE | 2017-08-18 16:04 | Discharge Summary ---
Hospital Course - Hospital Course Hospital Course: 66 year old male presents to the ED via EMS for further evaluation of AMS. at the bedside reports that she and patient were attending a family member's when he gripped her hand tight and told her he wasn't feeling well. Patient then collapsed onto the ground. Dr. Bang has seen him and feels he has not a stroke and started him on prozac. MRI was ordered and shows no evidence of acute stroke but he extacsia of right MCA. Dr. Bang feels he has conversion disorder. Carotid doppler shows less than 50%. Dr. Bang has cancelled cta of head and neck. Hemoglobin A1c 5.6 and cholesterol within normal limits. Family unhappy that we are not able to find something. I have spoken with Dr. Rocha and he will see him in the office. He has been rehydrated and will be discharged home with outpatient pt for left sided weakness. - Time spent with patient Time with patient DS: Less than 30 minutes (25 min) Diagnosis - Discharge Diagnosis (1) Acute CVA (cerebrovascular accident) Status: Acute (2) CAD (coronary artery disease) Status: Acute (3) Hypertension Status: Chronic (4) Depression Status: Chronic (5) Chest pain Status: Resolved (6) Altered mental status Status: Acute (7) Dehydration Status: Acute (8) Hyperlipidemia Status: Acute Discharge Plan - Discharge Data Disposition: Disch To Home/Self Care Condition at Discharge: Stable Discharge Diet: heart healthy Activity: resume usual activities as tolerated Hygiene: no restrictions - Discharge Medications New FLUoxetine [PROzac] 20 mg PO BEDTIME #30 capsule Continue Aspirin EC Tab 81 mg PO DAILY Atorvastatin Calcium [Lipitor] 80 mg PO DAILY Ranolazine [Ranexa] 1,000 mg PO BID Clopidogrel [Plavix] 75 mg PO DAILY Gabapentin 100 mg PO QID Zolpidem Tartrate 10 mg PO BEDTIME Losartan Potassium 25 mg PO DAILY Nitroglycerin [Nitroglycerin SL Tab] 0.4 mg SL DIRECTED PRN MDD 3 tabs PRN Reason: Chest Pain Discontinued Carvedilol [Coreg] 6.25 mg PO BID #60 tablet traZODone [Desyrel] 1 tablet PO BEDTIME - Follow Up or Referral Follow Up: Katy Rocha DO [Physician] - 2 Weeks - Forms/Instructions Exam - Constitutional Vitals: Period Temp Pulse Resp BP Sys/Gracia Pulse Ox Last 24 Hr 97.6 F-98.4 F 50-63 16-21 102-151/56-82 93-98 General appearance: normal weight, no acute distress - Respiratory Respiratory exam: Present: clear to auscultation bilaterally. Absent: rhonchi, wheezes - Cardiovascular Cardiovascular exam: Present: regular rate and rhythm. Absent: systolic murmur - GI/Abdominal GI/Abdominal exam: Present: normal bowel sounds, soft. Absent: tenderness - Extremities Exam Extremities exam: Present: normal inspection, normal capillary refill - Neurological Exam Neurological exam: Present: altered - Psychiatric Psychiatric exam: Present: depressed, flat affect Discharge Results Procedures and tests throughout hospitalization: Pending Orders 08/17/17 12:12 Blood Culture Stat 08/18/17 14:37 MR head/brain wo con Stat Labs on day of discharge: Labs from last 24 hours 08/18/17 08/18/17 08/18/17 14:38 11:52 11:32 INR PT Patient/Control Mix Circ Anticoag PTT ABG pH 7.379 ABG pCO2 43.0 ABG pO2 108.9 H ABG HCO3 24.8 ABG Total CO2 26.1 ABG O2 Saturation 97.6 ABG Base Excess -0.4 POC Glucose 125 H Hemoglobin A1c Total Creatine Kinase CK-MB (CK-2) Troponin I < 0.015 Triglycerides Cholesterol LDL Cholesterol VLDL Cholesterol HDL Cholesterol Heart Disease Risk Ratio Urine Opiates Screen Ur Barbiturates Screen Ur Phencyclidine Scrn U Amphetamine/Methamph U Benzodiazepines Scrn U Cocaine Metab Screen U Cannabinoids Screen 08/18/17 08/18/17 08/17/17 04:34 04:31 20:39 INR PT Patient/Control Mix Circ Anticoag PTT ABG pH ABG pCO2 ABG pO2 ABG HCO3 ABG Total CO2 ABG O2 Saturation ABG Base Excess POC Glucose Hemoglobin A1c Total Creatine Kinase 34 L CK-MB (CK-2) < 1.0 Troponin I < 0.015 < 0.015 Triglycerides 130 Cholesterol 89 LDL Cholesterol 51.0 VLDL Cholesterol 26.0 HDL Cholesterol 28 L Heart Disease Risk Ratio 3.18 Urine Opiates Screen Ur Barbiturates Screen Ur Phencyclidine Scrn U Amphetamine/Methamph U Benzodiazepines Scrn U Cocaine Metab Screen U Cannabinoids Screen 08/17/17 08/17/17 08/17/17 19:02 16:52 16:52 INR 1.1 PT Patient/Control Mix 11.5 Circ Anticoag PTT ABG pH ABG pCO2 ABG pO2 ABG HCO3 ABG Total CO2 ABG O2 Saturation ABG Base Excess POC Glucose 90 Hemoglobin A1c 5.6 Total Creatine Kinase CK-MB (CK-2) Troponin I Triglycerides Cholesterol LDL Cholesterol VLDL Cholesterol HDL Cholesterol Heart Disease Risk Ratio Urine Opiates Screen Ur Barbiturates Screen Ur Phencyclidine Scrn U Amphetamine/Methamph U Benzodiazepines Scrn U Cocaine Metab Screen U Cannabinoids Screen 08/17/17 08/17/17 08/17/17 16:52 16:52 16:05 INR PT Patient/Control Mix Circ Anticoag PTT 25.7 ABG pH ABG pCO2 ABG pO2 ABG HCO3 ABG Total CO2 ABG O2 Saturation ABG Base Excess POC Glucose Hemoglobin A1c Total Creatine Kinase CK-MB (CK-2) Troponin I < 0.015 Triglycerides Cholesterol LDL Cholesterol VLDL Cholesterol HDL Cholesterol Heart Disease Risk Ratio Urine Opiates Screen Negative Ur Barbiturates Screen Negative Ur Phencyclidine Scrn Negative U Amphetamine/Methamph Negative U Benzodiazepines Scrn Negative U Cocaine Metab Screen Negative U Cannabinoids Screen Negative Preliminary micro results at discharge 08/17/17 12:12 Blood Culture - Preliminary Blood No growth at 1 day 08/17/17 12:12 Blood Culture - Preliminary Blood No growth at 1 day DS: Provider Date of admission: 08/17/17 13:24 Primary care physician: . No PCP Attending physician on admission: Marion Barrera MD Consults: 08/17/17 14:34 Consult to Case Mgmt/Social Srvs [CONS] Routine Reason for Case Mgmt/Social Srvs: Discharge Planning Consult to Occupational Therapy [CONS] Routine Reason for Occupational Therapy: Evaluate and Treat Consult Comment: Stroke Consult to Physical Therapy [CONS] Routine Reason for Physical Therapy: Evaluate and Treat Consult Comment: stroke Consult to Speech Therapy [CONS] Routine Reason for Speech Therapy: CVA Consult Comment: with/without possible aspiration 08/17/17 14:38 Consult to Physician [CONS] Routine Comment: Consulting Provider: Melchor Bang Consult to Specialist Group: Neurology Person Notified: aware Date Notified: 08/17/17 Time Notified: 14:49 Discharging clinician: Marion Barrera MD
--- NOTE | 2017-08-18 16:08 | Magnetic Resonance Report ---
MRI of the brain without contrast. Indication: Left-sided weakness. No prior study. Comparison: CT of the head of August 17, 2016. The appearance of the craniovertebral junction is within normal limits. The pituitary gland is normal in size. There is mild heterogeneity of the marrow of the clivus, without significant correlate: CT. This is nonspecific. There is generalized prominence of the ventricles and sulci consistent with atrophy of aging. There is a small remote lacunar infarct in the right aspect of the parveen. There are mild findings of chronic microvascular ischemia within the periventricular white matter. No acute ischemic lesions are noted. No cortical infarcts are seen at this time. There is noted to be a history of basilar artery stent formation. The basilar artery is patent. There is dolichoectasia of the right MCA. Small associated aneurysmal dilatation cannot be excluded. [place] anatomical variation is also suggested. Both ICAs are patent. The venous sinuses are patent. There is an air-fluid level present within the right maxillary sinus with mucosal thickening and polypoid formation within the ethmoid sinuses. Impression: 1. No evidence of acute infarction. 2. Chronic microvascular ischemic change involving the white matter of both cerebral hemispheres in the right aspect of the parveen. 3. Paranasal sinus disease. 4. Dolichoectasia of the right MCA, associated aneurysmal dilatation cannot be completely excluded. 5. Mild marrow heterogeneity involving the clivus. No corresponding mass can be seen on CT. PROCEDURE INTERPRETED AT [facility] DEPARTMENT OF RADIOLOGY Final Report Signed by: Dr. Nelia Dodge
[2017-08-18] MEDS: GABAPENTIN 100 MG CAPSULE PO SCH ×2 (16:19→21:53)
[2017-08-18] MEDS: CLOPIDOGREL 75 MG TABLET PO SCH (16:20)
--- NOTE | 2017-08-18 16:55 | Hospitalist Progress Note ---
Assessment and Plan (1) Acute CVA (cerebrovascular accident) Status: Acute Assessment and plan: MRI no evidence of stroke, suspect conversion disorder, Dr. Schulz will assume care tomorrow. Dr. Bang will follow him Current Visit: Yes (2) CAD (coronary artery disease) Status: Acute Assessment and plan: s/p stents multiple, sees Dr. Rocha, no acute cardiac issues Current Visit: Yes (3) Hypertension Status: Chronic Assessment and plan: restarted home meds, except hold coreg due to bradycardia Current Visit: No Qualifiers: Hypertension type: essential hypertension Qualified Code(s): I10 - Essential (primary) hypertension (4) Depression Status: Chronic Assessment and plan: cont prozac Current Visit: No Qualifiers: Depression Type: major depressive disorder Major depression recurrence: recurrent Active/Remission status: currently active Major depression episode severity: severe Psychotic features: without psychotic features Qualified Code(s): F33.2 - Major depressive disorder, recurrent severe without psychotic features (5) Chest pain Status: Resolved Assessment and plan: serial troponins negative and ekg unchanged Current Visit: No (6) Altered mental status Status: Acute Assessment and plan: unchanged, suspect conversion disorder Current Visit: Yes (7) Dehydration Status: Acute Assessment and plan: resolved, HL IVF Current Visit: Yes (8) Hyperlipidemia Status: Acute Assessment and plan: cont lipitor 80 mg at bedtime. Current Visit: Yes Hospitalist: Subjective Interval history: 66 year old male presents to the ED via EMS for further evaluation of AMS. at the bedside reports that she and patient were attending a family member's when he gripped her hand tight and told her he wasn't feeling well. Patient then collapsed onto the ground. Dr. Bang has seen him and feels he has not a stroke and started him on prozac. MRI was ordered and shows no evidence of acute stroke but he extacsia of right MCA. Dr. Bang feels he has conversion disorder. Carotid doppler shows less than 50%. Dr. Bang has cancelled cta of head and neck. Hemoglobin A1c 5.6 and cholesterol within normal limits. Family unhappy that we are not able to find something. I have spoken with Dr. Rocha and he will see him in the office. He has been rehydrated and will be discharged home with outpatient pt for left sided weakness. Patient's family was angry at me after Dr. Bang told them it was just depression. He does have a history of sleep apnea and does not wear his cpap. Exam - Constitutional Vitals: Period Temp Pulse Resp BP Sys/Gracia Pulse Ox Last 24 Hr 97.6 F-98.4 F 50-78 16-21 105-161/59-86 93-98 Exam: Heart Rate-[RRR] Lungs-[CTAB] GI-[+bs soft, NT] Ext-[no edema] Neuro would not wake to sternal rub, but will wake up and swallow his pills psych [depressed mood and flat affect] General [no acute distress] Results - Labs CBC & BMP: 08/17/17 12:12 08/17/17 12:12 Lab Results: I have reviewed the past 24 hour labs - Diagnostic Findings Procedure: MRI: report reviewed by me (no acute stroke ) Specialty Discharge - Follow Up or Referrals Follow up with: Katy Rocha DO [Physician] - 2 Weeks
[2017-08-18] MEDS ORDERED: GLUCAGON 1 MG VIAL IM PRN ×2 (17:05→17:52)
[2017-08-18] MEDS ORDERED: DEXTROSE 50% 25 GM/50 ML VIAL IV PRN ×2 (17:05→17:52)
--- NOTE | 2017-08-18 17:47 | Hospitalist Progress Note ---
Assessment and Plan (1) Left-sided weakness Status: Acute Assessment and plan: Continue physical therapy and occupation therapy. EEG in a.m. MRI reviewed. No evidence of acute stroke. Current Visit: Yes (2) Bradycardia Status: Acute Assessment and plan: Hold Coreg Current Visit: Yes (3) CAD (coronary artery disease) Status: Chronic Current Visit: Yes (4) Hyperlipidemia Status: Chronic Assessment and plan: Continue statin therapy Current Visit: Yes Hospitalist: Subjective Interval history: The patient was seen and examined by me. I received a call from Dr. Barrera regarding her interaction with the family. She felt that they were hostile towards her and were dissatisfied with the diagnosis. I also received a phone call from administration asking that I intervene in the case due to the patient' s family's dissatisfaction. The case was reviewed by me extensively prior to meeting the family. I also discussed the case with Dr. Bang by phone. I will assume care of this patient for the duration of his hospitalization. His MRI from today was reviewed, both images and report. I discussed it with Dr. Bang. He appears to have symptoms related to his old stroke which were sudden in onset and began after syncopal episode at a yesterday. An EEG has been ordered for tomorrow morning. Exam - Constitutional Vitals: Period Temp Pulse Resp BP Sys/Gracia Pulse Ox Last 24 Hr 97.6 F-98.4 F 50-78 16-21 105-161/59-86 93-98 Exam: Constitutional System: No distress. No tremulousness. The patient is tearful. Head: Normocephalic, atraumatic. Ears, Nose and Throat System: No pain or tenderness. No epistaxis or discharge Eyes System: Pupils equal, round, and reactive. Extraocular muscles intact. Neck: Supple, without adenopathy, No jugular venous distention. Respiratory System: Chest clear to auscultation. Cardiovascular System: Heart with bradycardic rate and sinus rhythm. No murmur. GI System: Abdomen soft, nontender. Normo active bowel sounds present. Musculoskeletal System: limbs with no pedal edema. Full distal pulses. Normal capillary refill. Neurological System: No discernable sensory deficit. No aphasia. Left-sided weakness noted. Psychiatric System: Conversation is rational. Flat affect. Results - Labs CBC & BMP: 08/17/17 12:12 08/17/17 12:12 Lab Results: I have reviewed the past 24 hour labs - Diagnostic Findings Procedure: MRI: image reviewed by me, report reviewed by me Specialty Discharge - Follow Up or Referrals Follow up with: Katy Rocha DO [Physician] - 2 Weeks
--- NOTE | 2017-08-18 20:31 | Order Completion Report ---
See report scanned to EMR
[2017-08-18] MEDS ORDERED: CARVEDILOL 6.25 MG TABLET PO SCH (21:00)
[2017-08-18] MEDS ORDERED: INSULIN LISPRO 100 UNIT/ML SUBCUT SCH (21:00)
[2017-08-18] MEDS: RANOLAZINE 500 MG TABLET PO SCH (21:52)
[2017-08-18] MEDS: ATORVASTATIN 80 MG TABLET PO SCH (21:52)
[2017-08-18] MEDS: INSULIN LISPRO 100 UNIT/ML SUBCUT SCH (21:52)
[2017-08-18] MEDS: FLUoxetine 20 MG CAPSULE PO SCH (21:53)
[2017-08-18] MEDS: ZALEPLON 5 MG CAPSULE PO SCH (21:53)
[2017-08-19] MEDS: INSULIN LISPRO 100 UNIT/ML SUBCUT SCH ×4 (07:30→21:12)
[2017-08-19] MEDS: CLOPIDOGREL 75 MG TABLET PO SCH (09:09)
[2017-08-19] MEDS: RANOLAZINE 500 MG TABLET PO SCH ×2 (09:09→21:11)
[2017-08-19] MEDS: ASPIRIN EC 81 MG TABLET PO SCH (09:09)
[2017-08-19] MEDS: LOSARTAN 25 MG TABLET PO SCH (09:09)
[2017-08-19] MEDS: GABAPENTIN 100 MG CAPSULE PO SCH ×4 (09:09→21:12)
--- NOTE | 2017-08-19 12:53 | Neurology Progress Note ---
Neurology - PN : Subjective Interval history: Patient seems to be doing much better. No new problems reported. He got up and walked in the hallway today. He reported that he is almost 85-90% improved. EEG is within normal limits. Exam (Progress Note) - Constitutional Vitals: Period Temp Pulse Resp BP Sys/Gracia Pulse Ox Last 24 Hr 97.2 F-98.4 F 51-78 18-20 108-161/62-86 94-97 Exam: GENERAL: Patient is in no acute distress. NECK: Neck is supple. There is no JVD. No carotid bruits present. No thyroid masses. CVS: First and second heart sounds are normal. There is no S3 present. Regular rate and rhythm. RESPIRATORY: Lungs are clear to auscultation without any rales or rhonchi. ABDOMEN: Soft and non-tender. Bowel sounds are present. There is no hepatosplenomegaly. EXT: There is no palpable edema. Peripheral pulses are present. Skin: No rashes Central Nervous system: General: Alert, awake and Oriented x 3 Speech: Fluent Comprehension: Intact and normal Facial expressions: Normal Cranial Nerves: CN1/Olfactory: Normal CN II/ Optic: Normal, Visual Grady unreliable CN III, and : YUE & EOMI CN V: Normal & intact CN VII: face is symmetric CNVIII: Normal CN XI/X/XI/XII: Intact and Normal Motor: Bulk and Tone is normal. Strength in the right 5/5, in the left 4+-5-/5 StrengthGrossly intact for all the modalities of PP, LT and temp sense in the left 3/5 with significant giveaway weak Sensory: Unreliable Reflexes: 1+ and symmetrical Cerebellar function: Not tested Toes: Equivocal Gait: Walking in the hallway. Results - Labs CBC & BMP: 08/17/17 12:12 08/17/17 12:12 Assessment and Plan (1) Left-sided weakness Status: Acute Assessment and plan: Continue Prozac 20 mg p.o. daily No further intervention from neuro stand Okay to go home when okay with PCP Sign off please call as needed Current Visit: Yes Specialty Discharge - Follow Up or Referrals Follow up with: Katy Rocha DO [Physician] - 2 Weeks
[2017-08-19] MEDS: ENOXAPARIN 40 MG/0.4 ML SYRINGE SUBCUT SCH (15:25)
--- NOTE | 2017-08-19 18:43 | Hospitalist Progress Note ---
Assessment and Plan (1) Left-sided weakness Status: Acute Assessment and plan: Continue physical therapy and occupation therapy. EEG report pending. MRI reviewed. No evidence of acute stroke. Current Visit: Yes (2) Bradycardia Status: Acute Assessment and plan: Hold Coreg Current Visit: Yes (3) CAD (coronary artery disease) Status: Chronic Current Visit: Yes (4) Hyperlipidemia Status: Chronic Assessment and plan: Continue statin therapy Current Visit: Yes Hospitalist: Subjective Interval history: Mr. Gee looks and feels better today. He is seen on rounds with his at the bedside. He has improved function of his left upper and lower extremity. He still has some weakness but his coordination has improved significantly. He states he wants to go home. We will continue physical therapy and Occupational Therapy and follow-up as EEG from today. Case discussed with neurology on rounds. Exam - Constitutional Vitals: Period Temp Pulse Resp BP Sys/Gracia Pulse Ox Last 24 Hr 97.2 F-98.4 F 51-65 18-20 108-143/62-84 91-97 Exam: Constitutional System: No distress. No tremulousness. The patient is tearful. Head: Normocephalic, atraumatic. Ears, Nose and Throat System: No pain or tenderness. No epistaxis or discharge Eyes System: Pupils equal, round, and reactive. Extraocular muscles intact. Neck: Supple, without adenopathy, No jugular venous distention. Respiratory System: Chest clear to auscultation. Cardiovascular System: Heart with bradycardic rate and sinus rhythm. No murmur. GI System: Abdomen soft, nontender. Normo active bowel sounds present. Musculoskeletal System: limbs with no pedal edema. Full distal pulses. Normal capillary refill. Neurological System: No discernable sensory deficit. No aphasia. Left-sided weakness improved. Improved coordination And strength on the left Psychiatric System: Conversation is rational. Flat affect. Results - Labs CBC & BMP: 08/17/17 12:12 08/17/17 12:12 Lab Results: I have reviewed the past 24 hour labs - Diagnostic Findings Procedure: MRI: report reviewed by me, Ultrasound: report reviewed by me Specialty Discharge - Follow Up or Referrals Follow up with: Katy Rocha DO [Physician] - 2 Weeks
[2017-08-19] MEDS: ATORVASTATIN 80 MG TABLET PO SCH (21:11)
[2017-08-19] MEDS: FLUoxetine 20 MG CAPSULE PO SCH (21:12)
[2017-08-19] MEDS: ZALEPLON 5 MG CAPSULE PO SCH (21:13)
[2017-08-20] MEDS: RANOLAZINE 500 MG TABLET PO SCH (09:08)
[2017-08-20] MEDS: INSULIN LISPRO 100 UNIT/ML SUBCUT SCH ×2 (09:08→13:10)
[2017-08-20] MEDS: GABAPENTIN 100 MG CAPSULE PO SCH (09:09)
[2017-08-20] MEDS: ASPIRIN EC 81 MG TABLET PO SCH (09:09)
[2017-08-20] MEDS: CLOPIDOGREL 75 MG TABLET PO SCH (09:09)
[2017-08-20] MEDS: LOSARTAN 25 MG TABLET PO SCH (09:09)
--- NOTE | 2017-08-20 11:27 | Discharge Summary ---
Hospital Course - Hospital Course Hospital Course: 66 year old male presents to the ED via EMS for further evaluation of AMS. at the bedside reports that she and patient were attending a family member's when he gripped her hand tight and told her he wasn't feeling well. Patient then collapsed onto the ground. His symptoms may be a conversion disorder and he was started on prozac. MRI was ordered and shows no evidence of acute stroke but he extacsia of right MCA. Carotid doppler shows less than 50%. Hemoglobin A1c 5.6 and cholesterol within normal limits. I have spoken with Dr. Rocha and he will see him in the office. He has been rehydrated and will be discharged home with outpatient pt for left sided weakness. On the day of discharge, the patient is awake alert and oriented 3. He is in no acute distress. His left-sided weakness is greatly improved in the upper and lower extremity. Both strength and coordination have improved dramatically. He is in a better mood and is requesting discharge home. His and a family friend are at the bedside and agree that he has improved tremendously and is ready for discharge. He has been set up for home health care and outpatient physical therapy. His home medications were reviewed and reconciled. His only new medication is Prozac. He understands that this may take several weeks to regain 100% of his previous strength. Ultimately the patient does not appear to have a new neurological finding on imaging. His improvement is encouraging and is consistent with a conversion stress reaction. - Time spent with patient Time with patient DS: Greater than 30 minutes (total discharge time for this patient, including [id number] time, clinical documentation, medication reconciliation, and discharge planning was 45 minutes.) Diagnosis - Discharge Diagnosis (1) Left-sided weakness Status: Acute (2) Bradycardia Status: Acute (3) CAD (coronary artery disease) Status: Chronic (4) Hyperlipidemia Status: Chronic Specialty Discharge - Follow Up or Referrals Follow up with: Katy Rocha DO [Physician] - 2 Weeks Discharge Plan - Discharge Data Disposition: Home Health Service Condition at Discharge: Stable Discharge Diet: advance to your usual diet Activity: resume usual activities as tolerated, as per physical therapy Hygiene: no restrictions Weight Bearing at Discharge: full weight bearing Contact your physician if you experience:: fever over 101, Difficulty voiding, Nausea/Vomiting, Shortness of breath, pain uncontrolled by pain medications - Discharge Medications New Aspirin EC Tab 81 mg PO DAILY tablet FLUoxetine [PROzac] 20 mg PO BEDTIME #30 capsule Continue Aspirin EC Tab 81 mg PO DAILY Atorvastatin Calcium [Lipitor] 80 mg PO DAILY Ranolazine [Ranexa] 1,000 mg PO BID Clopidogrel [Plavix] 75 mg PO DAILY Gabapentin 100 mg PO QID Zolpidem Tartrate 10 mg PO BEDTIME Losartan Potassium 25 mg PO DAILY Nitroglycerin [Nitroglycerin SL Tab] 0.4 mg SL DIRECTED PRN MDD 3 tabs PRN Reason: Chest Pain Discontinued Carvedilol [Coreg] 6.25 mg PO BID #60 tablet traZODone [Desyrel] 1 tablet PO BEDTIME - Follow Up or Referral Follow Up: Katy Rocha DO [Physician] - 2 Weeks - Forms/Instructions Instructions: Transient Ischemic Attack (DC), Weakness (GEN) Additional Discharge Instructions: Follow-up with primary care physician next week Exam - Constitutional Vitals: Period Temp Pulse Resp BP Sys/Gracia Pulse Ox Last 24 Hr 97.4 F-98.1 F 51-63 14-20 132-156/67-84 91-97 Discharge Results Procedures and tests throughout hospitalization: Pending Orders 08/17/17 12:12 Blood Culture Stat Labs on day of discharge: Labs from last 24 hours 08/20/17 08/19/17 08/19/17 07:31 20:43 16:04 POC Glucose 176 H 135 H 112 H 08/19/17 11:09 POC Glucose 111 H Preliminary micro results at discharge 08/17/17 12:12 Blood Culture - Preliminary Blood No growth at 1 day 08/17/17 12:12 Blood Culture - Preliminary Blood No growth at 1 day DS: Provider Date of admission: 08/17/17 13:24 Primary care physician: . No PCP Attending physician on admission: Marion Barrera MD Consults: 08/17/17 14:34 Consult to Case Mgmt/Social Srvs [CONS] Routine Reason for Case Mgmt/Social Srvs: Discharge Planning Consult to Occupational Therapy [CONS] Routine Reason for Occupational Therapy: Evaluate and Treat Consult Comment: Stroke Consult to Physical Therapy [CONS] Routine Reason for Physical Therapy: Evaluate and Treat Consult Comment: stroke 08/17/17 14:38 Consult to Physician [CONS] Routine Comment: Consulting Provider: Melchor Bang Consult to Specialist Group: Neurology Person Notified: md aware Date Notified: 08/17/17 Time Notified: 14:49 08/19/17 14:05 Consult to Case Mgmt/Social Srvs [CONS] Routine Reason for Case Mgmt/Social Srvs: Other Consult Comment: PHYSICAL THERPY X2 WEEKS Discharging clinician: Jennifer Red MD Expected date of discharge: 08/20/17
[2017-08-20 12:48] VITALS: BP 129/72
--- NOTE | 2017-08-26 18:52 | Order Completion Report ---
See report scanned to EMR
== END 2017-08-20 12:00 | disposition home health service (06) | DRG 880 ==
LOC: N.ED 11:58 → N.EDINP 13:24 → SUATTDRO 13:24 → N.5E 13:49
PROVIDERS: ADMIT Internal Medicine; ATTEND Family Medicine